=== PATIENT | male | born 1995 | race Caucasian/White ===

== ENCOUNTER 2018-04-24 04:16 | Emergency (ER) | payer OTHER ==
[~2018-04-24] VITALS: Ht 165.1 cm; Wt 69.6 kg
[2018-04-24 04:31] VITALS: Ht 165.1 cm; Wt 69.6 kg
[2018-04-24 07:10] VITALS: BP 122/62
== END 2018-04-24 07:10 | disposition home or self-care (01) ==
LOC: ED 04:16
DX: R05 Cough (principal); R07.89 Other chest pain
CPT/HCPCS: J7512